=== PATIENT | female | born 1970 | race Caucasian/White ===

== ENCOUNTER 2017-07-03 07:43 | Emergency (ER) | payer MEDICAID ==
[2017-07-03] MEDS: DEXAMETHASONE 10 MG/ML 1 ML INJ IM (08:33)
[2017-07-03] MEDS: KETOROLAC 30 MG INJ IM (09:01)
[2017-07-03] MEDS: CLINDAMYCIN 300 MG CAP PO (09:09)
== END 2017-07-03 09:26 | disposition home or self-care (01) ==
LOC: FTE 07:43
DX: J02.9 Acute pharyngitis, unspecified (principal)
CPT/HCPCS: 81025; 96372; 99284-25

== ENCOUNTER 2017-07-04 16:00 | Emergency (ER) | payer MEDICAID ==
[2017-07-04] MEDS: LIDOCAINE/MYLANTA 40 ML BTL PO (16:34)
[2017-07-04] MEDS: FAMOTIDINE 20 MG TAB PO (16:34)
[2017-07-04] MEDS: PENICILLIN G BENZ 1.2 MIL UNIT SYG IM (18:01)
== END 2017-07-04 19:00 | disposition home or self-care (01) ==
LOC: FTE 16:00
DX: J02.9 Acute pharyngitis, unspecified (principal); T36.8X5A Adverse effect of other systemic antibiotics, initial encounter
CPT/HCPCS: 81025; 96372; 99284-25